=== PATIENT | male | born 1945 | race Caucasian/White ===

== ENCOUNTER 2022-10-07 14:38 | Emergency (ER) | payer MEDICAID, SELFPAY ==
[2022-10-07 14:49] VITALS: BP 158/94; PULSE 92; RESP 15; TEMP 36.7; O2SAT 94
--- NOTE | 2022-10-07 15:23 | ED_ITS ---
HPI - Male Genitourinary General: Chief complaint: Urogenital-Male Stated complaint: possible uti Time Seen by Provider: 10/07/22 14:59 History of Present Illness: Patient comes in with concerns for urinary tract infection. States that he self caths and has had pain in his bladder for the past week or so. States that he had a urine sample done which showed a UTI and was started on Keflex, but then they called him stating that Keflex would work. States that they did not place him on any other antibiotics. States he was scheduled to see his urologist and there was some confusion or rescheduling issues. States he was there today and got mad at them for trying to reschedule him and instead came to the emergency department. Will start him on an antibiotic for the UTI. The patient also stated that he wanted me to refill his hydrocodone. I informed him that we will not refill hydrocodone here but that he could consult with his primary care physician at which point he got mad and said I am only doing that because the police told me not to refill it?? I informed him that that was not the case but that we do not manage narcotic prescriptions here. Associated symptoms: Deny dysuria, nausea or vomiting Review of Systems Const: Denies: fever(s) or body aches Eyes: Denies: change in vision or blurry vision ENMT: Denies: throat pain or odynophagia Card: Denies: chest pain or palpitations Resp: Denies: dyspnea or productive cough GI: Reports: other (Suprapubic abdominal pain/cramp); Denies: nausea or vomiting : Denies: flank pain or dysuria Musc: Denies: neck pain or back pain Skin/Breast: Denies: rash or pruritus Neuro: Denies: headache(s) or numbness in extremities Psych: Denies: anxiety or change in appetite Endo: Denies: polyuria or excessive sweating PFSH ED PFSH: Medical History Asthma COPD (chronic obstructive pulmonary disease) Elevated PSA H/O fracture of lower leg Hx of undescended testicle Urinary retention Surgical History S/P tonsillectomy Family History Father Cancer LUNG Mother Cancer COLON AND LIVER Social History Smoking and tobacco status: light tobacco smoker smokeless tobacco Smokeless tobacco user: chewing tobacco Alcohol intake: current Alcohol intake frequency: few times a month Marital status: Current occupational status: retired Physical Exam Const: COMMON NORMALS: no acute distress, patient oriented x3, healthy appearing and alert HENMT: COMMON NORMALS: normocephalic and atraumatic HEAD & SCALP: normocephalic and atraumatic Eye: COMMON NORMALS: Equal, round and reactive pupils present and EOMs intact bilaterally PUPIL: Yes Equal, round and reactive pupils present Neck/C-Spine: COMMON NORMALS: full ROM and supple Resp: COMMON NORMALS: normal respiratory effort, No retractions and No use of accessory muscles Cardio: COMMON NORMALS: regular rate and regular rhythm RATE: regular rate RHYTHM: regular rhythm GI: COMMON NORMALS: Normal to inspection, nondistended, normoactive bowel sounds present and Soft to palpation PALPATION: Yes Soft to palpation Back/Pelvis: COMMON NORMALS: thoracic and lumbar spine normal to inspection and no thoracic nor lumbar tenderness Extremity: COMMON NORMALS: normal to inspection and full ROM Neuro: COMMON NORMALS: patient oriented x3 SENSORIUM/ORIENTATION: Yes alert Psych: COMMON NORMALS: mental status grossly normal and cooperative Skin: COMMON NORMALS: no rashes or lesions noted and no wounds GENERAL SKIN EXAM: no rashes or lesions noted Course Vital Signs: Vital signs: Vital Signs Temperature 98.0 F 10/07/22 14:49 Pulse Rate 92 10/07/22 14:49 Respiratory Rate 15 10/07/22 14:49 Blood Pressure 158/94 10/07/22 14:49 Pulse Oximetry 94 10/07/22 14:49 Oxygen Delivery Me thod 10/07/22 14:49 MDM - Male Medical Decision Making Patient comes in with concerns for urinary tract infection. States that he self caths and has had pain in his bladder for the past week or so. States that he had a urine sample done which showed a UTI and was started on Keflex, but then they called him stating that Keflex would work. States that they did not place him on any other antibiotics. States he was scheduled to see his urologist and there was some confusion or rescheduling issues. States he was there today and got mad at them for trying to reschedule him and instead came to the emergency department. Will start him on an antibiotic for the UTI. The patient also stated that he wanted me to refill his hydrocodone. I informed him that we will not refill hydrocodone here but that he could consult with his primary care physician at which point he got mad and said I am only doing that because the police told me not to refill it?? I informed him that that was not the case but that we do not manage narcotic prescriptions here. Will discharge home at this time with precautions return for worsening or changing symptoms. Discharge Plan Discharge Patient Disposition: Home Clinical Impression: Urinary tract infection Condition: Stable Prescriptions: New levofloxacin 750 mg tablet 750 mg PO DAILY 7 Days Qty: 7 0RF No Action albuterol sulfate 90 mcg/actuation HFA aerosol inhaler 2 puff inhalation Q6H PRN Discharge Orders: Discharge ED (Routine); Ordered 10/07/22 Ordered By: Carlos Fulton Referrals: Leah Robison [Primary Care Provider] - Patient Instructions: Urinary Tract Infection - Men Coding Level of Care Code ED Pouncing Machine Operator for Gautam Avalos
== END 2022-10-07 15:50 | disposition home or self-care (01) ==
PROVIDERS: Emergency Provider Emergency Medicine; PCP Nurse Practitioner Family
DX: N39.0 Urinary tract infection, site not specified (principal)
CPT/HCPCS: 99283